=== PATIENT | female | born 1955 | race American Indian/Alaskan Native ===

== ENCOUNTER 2018-05-25 08:54 | Outpatient (CLI) | payer MEDICARE ==
--- NOTE | 2018-05-25 10:12 | XRay Report ---
ROUTINE CHEST, TWO VIEWS: HISTORY: Chronic cough. The trachea, heart, mediastinal contour, lung rapp and bony thorax are unremarkable. IMPRESSION: Unremarkable chest x-ray.
--- NOTE | 2018-05-25 10:15 | Fluoroscopy Report ---
UPPER GI AIR CONTRAST: HISTORY: gastroesophageal reflux. FINDINGS: The patient ingested barium without difficulty. The esophageal contour is normal. There are no ulcerations or filling defects seen in the esophagus. There is normal esophageal motility. No hernia is demonstrated. Occasional episodes of gastroesophageal reflux to the midesophagus were witnessed during this exam. The gastric contour and position appear normal. There are no ulcerations or filling defects in the stomach. The duodenal bulb and duodenal sweep appear normal. IMPRESSION: Mild gastroesophageal reflux was witnessed during this exam.
== END 2018-05-25 08:55 | disposition home or self-care (01) ==
LOC: FLUORO 08:54
PROVIDERS: ATTEND Internal Medicine
DX: K21.9 Gastro-esophageal reflux disease without esophagitis (principal); J84.10 Pulmonary fibrosis, unspecified
CPT/HCPCS: 71046; 74247

== ENCOUNTER 2018-05-29 11:15 | Outpatient (CLI) | payer MEDICARE ==
[2018-05-29 11:53] LABS: Hematocrit 36.2 % (30.3-42.9); Hemoglobin 11.7 gm/dl (10.1-14.3); Mean Corpuscular HGB Conc 32 % (30-34); Mean Corpuscular Volume 72 fl (79-97); Platelet Count 226 K/mm3 (140-440); Red Blood Count 5.05 M/mm3 (3.65-5.03); Red Cell Distribution Width 15.4 % (13.2-15.2)
[2018-05-29 12:21] LABS: Alanine Aminotransferase 57 units/L (7-56); Albumin 4.1 g/dL (3.9-5); BUN/Creatinine Ratio 14; Blood Urea Nitrogen 10 mg/dL (7-17); Calcium 9.2 mg/dL (8.4-10.2); Hemolysis Index 2; LDL Cholesterol,Direct 35 mg/dL (50-130)
[2018-05-29 12:50] LABS: HDL Cholesterol 78 mg/dL (40-59)
--- NOTE | 2018-05-29 14:59 | Cat Scan Report ---
CT CHEST WITH CONTRAST: HISTORY: Pulmonary fibrosis, chronic cough. COMPARISON: none. TECHNIQUE: Helical CT in 1.25mm intervals following IV contrast. Sagittal and coronal reformatted images. FINDINGS: Thyroid gland: The thyroid gland is atrophic or has been surgically removed. No thyroid mass. Tracheobronchial tree: Normal. Esophagus: Normal. Heart: Borderline heart size. Pericardium: Normal. Mediastinum: Normal. Lung Valles: Normal. Pleural Spaces: Small bilateral layering pleural effusions are identified measuring up to 1 cm in thickness. Musculoskeletal: Intact. Mild thoracic spondylosis is noted. IMPRESSION: Borderline heart size. Small layering pleural effusions. Consider early CHF. Normal lung parenchyma. No evidence for fibrosis.
[2018-06-03 12:58] LABS: ANA Screen, IFA Negative (Negative)
[2018-06-03 23:17] LABS: Myeloperoxidase Antibody <1.0 AI (<1.0)
== END 2018-05-29 11:16 | disposition home or self-care (01) ==
LOC: CT 11:15
PROVIDERS: ATTEND Internal Medicine
DX: J84.89 Other specified interstitial pulmonary diseases (principal); J84.10 Pulmonary fibrosis, unspecified; K21.9 Gastro-esophageal reflux disease without esophagitis; E11.9 Type 2 diabetes mellitus without complications
CPT/HCPCS: 36415; 36600; 71260; 80053; 80061; 82164; 82785; 82803; 84436; 84443; 85027; 86021; 86038; 86618; Q9967

== ENCOUNTER 2020-04-29 10:05 | Outpatient (CLI) | payer MEDICARE ==
--- NOTE | 2020-04-30 08:54 | Magnetic Resonance Report ---
Bilateral breast MR without and with contrast. History: Recently diagnosed left breast malignancy, assess extent of disease. History of prior left b reast cancer status post lumpectomy. Comparison: No outside imaging is available for comparison. We have reports that the patient was rece ntly diagnosed with left upper outer posterior breast malignancy per the ordering clinician's notes. Technique: Multiplanar multisequence MR images of the breast were obtained before and after the intra venous administration of intravenous contrast. Post processing analysis and review was performed on a separate computer workstation. Findings: There is mild background parenchymal enhancement within both breasts. LEFT BREAST: Located at the 1:30 posterior position within the left breast is a 2.5 x 2.3 x 2.2 cm ir regular enhancing mass. This likely represents the site of recently diagnosed left breast malignancy identified at an outside facility. This mass directly abuts the underlying pectoralis muscle which sh ows abnormal enhancement. The findings are concerning for the presence of pectoralis muscle invasion. No evidence of overlying skin involvement. Located slightly more anteriorly and centrally within the left breast is a 7 x 7 x 8 mm irregular enhancing mass concerning for a satellite lesion. This is lo cated 2.3 cm anterior to the known biopsy-proven malignancy (image [phone]). There is asymmetrical ly smaller size of the left breast as well as skin thickening of the anterior left breast. This is pfeiffer spected to represent post lumpectomy and radiation treatment as the patient has a history of prior le ft breast cancer. RIGHT BREAST: No discrete enhancing mass, dominant focus, or other abnormal enhancement within the ri ght breast. No abnormal axillary or internal mammary lymph nodes. Impression: Known biopsy-proven malignancy within the left breast at the 1:30 posterior position measures up to 2 .5 cm on MRI. There is suspected invasion of the underlying pectoralis muscle. A separate satellite n odule measuring 8 mm is located more anteriorly and centrally within the left breast. The distance be tween this and the known biopsy-proven malignancy is 2.3 cm. BIRADS 6: Known biopsy proven malignancy. A normal MRI does not exclude the presence of some forms of breast malignancy as literature reports s uggest that some forms of ductal carcinoma in situ or lobular carcinoma, particularly, may not be det ected on MRI. The sensitivity and specificity of MRI for cancers under 5 mm may be reduced. MRI does not replace the recommendation for annual conventional mammographic evaluation and should be used as an adjunct to mammography and physical examination as necessary. Signer Name: Aleks Moreira MD Signed: 04/30/2020 8:50 AM Workstation Name: [id number]
== END 2020-04-29 10:06 | disposition home or self-care (01) ==
LOC: SPVIMAG 10:05
PROVIDERS: ATTEND Surgery
DX: C50.412 Malignant neoplasm of upper-outer quadrant of left female breast (principal); N63.21 Unspecified lump in the left breast, upper outer quadrant; Z85.3 Personal history of malignant neoplasm of breast
CPT/HCPCS: A9577; C8908; 77049

== ENCOUNTER 2020-05-28 09:52 | Outpatient (CLI) | payer MEDICARE ==
[2020-05-28 10:55] LABS: Blood Urea Nitrogen 9 mg/dL (7-17)
--- NOTE | 2020-05-28 11:59 | Magnetic Resonance Report ---
MRI BRAIN 05/28/2020 INDICATION / CLINICAL INFORMATION: MAIN. History of breast cancer TECHNIQUE: Multiplanar, multisequence MR images of the brain were obtained. COMPARISON: None available. FINDINGS: BRAIN / INTRACRANIAL CONTENTS: Unenhanced and enhanced MR images of the brain were obtained. There is no evidence of acute abnormality. 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 The interhemispheric falx is intact. The corpus callosum has a normal appearance in the sagittal plane. Some mild chronic white matter T2 weighted hyperintensities are present, consistent with mild microan giopathic change. There is no evidence of acute ischemic injury, hemorrhage, or mass. There are no abnormal extra-axial fluid collections. Postcontrast images demonstrate no abnormal contrast enhancement. EXTRACRANIAL: Unremarkable CRANIOCERVICAL JUNCTION: No significant abnormality. VASCULAR FLOW-VOIDS: No significant abnormality. Incidental note is made of a posterior nasopharyngeal Thornwaldt's cyst, generally considered to be of no clinical significance. IMPRESSION: No acute abnormality. No evidence of metastatic disease. 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 Signer Name: Anthony Sidhu MD Signed: 05/28/2020 11:55 AM Workstation Name: [id number]
--- NOTE | 2020-05-28 12:13 | Cat Scan Report ---
CT CHEST WITHOUT CONTRAST INDICATION / CLINICAL INFORMATION: Malignant neoplasm. TECHNIQUE: Axial CT images were obtained through the chest without contrast. Sagittal and coronal reformatted im ages. All CT scans at this location are performed using CT dose reduction for ALARA by means of autom ated exposure control. COMPARISON: 05/29/2018 FINDINGS: HEART: Heart size is within normal limits. There appear to be 2 coronary artery stents in the left an terior descending artery. THORACIC AORTA: No significant abnormality. MEDIASTINUM and SHREYAS: Small hiatal hernia. No pathologic mediastinal adenopathy. LUNGS: No acute air space or interstitial disease. No suspicious pulmonary nodule is appreciated. PLEURA: No significant pleural effusion. No pneumothorax. SKELETAL SYSTEM: No suspicious bony lesion has developed. 6 mm bone island in T11 is unchanged. UPPER ABDOMEN: A 4.5 cm right renal cyst is partially imaged. The remaining abdominal viscera are unr emarkable. ADDITIONAL FINDINGS: An approximate 2.2 cm soft tissue mass is partially imaged in the visualized lef t breast. IMPRESSION: Probable 2.2 cm left breast mass which is only partially imaged due to patient body habitus. No evidence for thoracic adenopathy, pulmonary lesion or bony lesion. Small hiatal hernia. Right renal cyst. Signer Name: Doroteo Lee Jr, MD Signed: 05/28/2020 12:08 PM Workstation Name: [id number]
== END 2020-05-28 09:53 | disposition home or self-care (01) ==
LOC: MRI 09:52
PROVIDERS: ATTEND Internal Medicine Hematology & Oncology
DX: C50.412 Malignant neoplasm of upper-outer quadrant of left female breast (principal); D64.9 Anemia, unspecified; R68.89 Other general symptoms and signs; N63.20 Unspecified lump in the left breast, unspecified quadrant; N28.1 Cyst of kidney, acquired; K44.9 Diaphragmatic hernia without obstruction or gangrene; J39.2 Other diseases of pharynx
CPT/HCPCS: 36415; 70553; 71250; 82565; 84520; A9575; 71260

== ENCOUNTER 2020-05-29 11:34 | Outpatient (CLI) | payer MEDICARE ==
--- NOTE | 2020-05-29 15:03 | PET Report ---
PET/CT HISTORY: C50.412. Initial staging of left breast cancer TECHNIQUE: The patient's fasting blood glucose was 99. The patient weighed 190 lbs. The patient wa s injected with 12.2 mCi of FDG in the right antecubital fossa at 1226 hours and imaging was started at 1320 hours. The patient was imaged from the skull base to the thighs. All CT scans at this locati on are performed using CT dose reduction for ALARA by means of automated exposure control. Images wer e reviewed on a workstation. COMPARISON: CT chest dated 05/28/2020 FINDINGS: IMAGED BRAIN: [Physiologic FDG uptake. NECK: Physiologic FDG uptake. CHEST WALL: A 2.2 cm left breast mass containing a biopsy clip is identified with max SUV measuring 12.3.. MEDIASTINUM: Physiologic FDG uptake. LUNGS: Physiologic FDG uptake. HEPATOBILIARY: Physiologic FDG uptake. PANCREAS: There is an approximate 1.9 cm focus of increased uptake in the pancreatic head with max S UV measuring 11.2. SPLEEN: Physiologic FDG uptake. KIDNEYS/BLADDER: Physiologic FDG uptake. ADRENAL GLANDS: Physiologic FDG uptake. GI/MESENTERY: Physiologic FDG uptake. PELVIC VISCERA: Physiologic FDG uptake. LYMPH NODES: Physiologic FDG uptake. OSSEOUS STRUCTURES: Physiologic FDG uptake. ADDITIONAL FINDINGS: None. IMPRESSION: 2.2 cm hypermetabolic left breast mass consistent with primary breast cancer. There is an ill-defined 1.9 cm solid area in the pancreatic head which also demonstrates increased me tabolic activity as described above. Considerations include a metastatic lesion, second primary malig lan or focal pancreatitis. Consider correlation with pancreatic enzymes. If further evaluation is n eeded consider CT with and without contrast pancreas protocol or MRI with contrast. This would be a d ifficult lesion to biopsy secondary to adjacent vascular structures and bowel loops. No evidence for hepatic, marlys or bony metastasis. Signer Name: Doroteo Lee Jr, MD Signed: 05/29/2020 2:58 PM Workstation Name: [id number]
== END 2020-05-29 11:35 | disposition home or self-care (01) ==
LOC: PET 11:34
PROVIDERS: ATTEND Internal Medicine Hematology & Oncology
DX: C50.412 Malignant neoplasm of upper-outer quadrant of left female breast (principal); D64.9 Anemia, unspecified; R68.89 Other general symptoms and signs
CPT/HCPCS: 78815; 82962; A9552